=== PATIENT | female | born 1955 | race American Indian/Alaskan Native ===

== ENCOUNTER 2018-09-10 09:36 | Emergency (ER) | payer OTHER ==
[2018-09-10 10:21] VITALS: BP 180/72
--- NOTE | 2018-09-10 11:11 | Emergency Department Report ---
ED General Adult HPI - General Chief complaint: Pain General Stated complaint: LIGHT HEADED/FATIGUE/PALPATION Time Seen by Provider: 09/10/18 10:58 Source: patient Mode of arrival: Ambulatory Limitations: No Limitations - History of Present Illness Initial comments: Mrs. David is a 63 yo female with hx of "leaky valve" and palpitations who presents with generalized malaise and fatigue. She recently was treated with ciprofloxacin for 7 days for sinusitis. She now has diarrhea and fatigue. 4 stools per day. NO pain. She has had more palpitations than normal. consequently, she was worried. - Related Data Allergies Allergy/AdvReac Type Severity Reaction Status Date / Time sulfamethoxazole Allergy Vomiting Verified 09/10/18 09:52 [From Bactrim] trimethoprim [From Bactrim] Allergy Vomiting Verified 09/10/18 09:52 ED Review of Systems ROS: Stated complaint: LIGHT HEADED/FATIGUE/PALPATION Other details as noted in HPI Comment: All other systems reviewed and negative Constitutional: malaise. denies: fever Respiratory: denies: cough Cardiovascular: palpitations. denies: chest pain Gastrointestinal: diarrhea. denies: abdominal pain ED Past Medical Hx - Past Medical History Hx Hypertension: Yes Hx of Cancer: Yes (BREAST) Additional medical history: SINUS INFECTION GASTRITIS - Surgical History Additional Surgical History: BREAST SURGERY 96 SECTION X4/ HYSTO - Social History Smoking Status: Never Smoker Substance Use Type: None ED Physical Exam - General Limitations: No Limitations General appearance: alert, in no apparent distress - Head Head exam: Present: atraumatic, normocephalic - Eye Eye exam: Present: normal appearance - ENT ENT exam: Present: mucous membranes moist - Neck Neck exam: Present: normal inspection. Absent: tenderness, meningismus - Respiratory Respiratory exam: Present: normal lung sounds bilaterally. Absent: respiratory distress, wheezes, rales, rhonchi - Cardiovascular Cardiovascular Exam: Present: regular rate, normal rhythm, normal heart sounds. Absent: bradycardia, systolic murmur, diastolic murmur, rubs, gallop - GI/Abdominal GI/Abdominal exam: Present: soft, normal bowel sounds. Absent: distended, tenderness, guarding, rebound - Extremities Exam Extremities exam: Present: normal inspection - Back Exam Back exam: Present: normal inspection - Neurological Exam Neurological exam: Present: alert, oriented X3 - Psychiatric Psychiatric exam: Present: normal affect, normal mood - Skin Skin exam: Present: warm, dry, intact, normal color. Absent: rash ED Course Vital Signs 09/10/18 09/10/18 09:45 10:50 Temperature 98.4 F Pulse Rate 66 Respiratory 18 18 Rate Blood Pressure 180/72 O2 Sat by Pulse 98 Oximetry ED Medical Decision Making - Lab Data Result diagrams: 09/10/18 11:17 09/10/18 11:17 - EKG Data Interpretation: no acute changes 09/10/18 11:14 Time obtained 0947 Normal sinus rhythm 70 bpm nl axis no ST elevation nonspecific T wave patterns no ST elevation - Medical Decision Making Mrs. David presents with palpitations and fatigue. She is able to hydrate well at home. EKG did not show acute findings. No arrhythmia. CBC chemistry within normal limits except for mild hypokalemia 3.3 patient given potassium diet.. Due to patient's well appearance, I do not suspect C. difficile infection. Patient understands to use loperamide on the schedule basis. She understands return to ER symptoms progress. I suspect the patient did have PVCs due to change in volume status. Also she is self treating for possible dehydration with oral hydration at home. Critical care attestation.: If time is entered above; I have spent that time in minutes in the direct care of this critically ill patient, excluding procedure time. ED Disposition Clinical Impression: Diarrhea, Palpitations, Hypokalemia Disposition: - TO HOME OR SELFCARE Is pt being admited?: No Does the pt Need Aspirin: No Condition: Stable Instructions: Palpitations (ED), Acute Diarrhea (ED), Hypokalemia (ED) Referrals: PRIMARY CARE, [Primary Care Provider] - 3-5 Days
[2018-09-10 11:53] LABS: Basophils % (Auto) 0.4 % (0.0-1.8); Eosinophils # (Auto) 0.1 K/mm3 (0.0-0.4); Eosinophils % (Auto) 0.8 % (0.0-4.3); Hematocrit 37.5 % (30.3-42.9); Hemoglobin 12.6 gm/dl (10.1-14.3); Lymphocytes # (Auto) 2.2 K/mm3 (1.2-5.4); Lymphocytes % (Auto) 28.9 % (13.4-35.0); Mean Corpuscular HGB Conc 34 % (30-34); Mean Corpuscular Hemoglobin 29 pg (28-32); Mean Corpuscular Volume 85 fl (79-97); Monocytes # (Auto) 0.4 K/mm3 (0.0-0.8); Monocytes % (Auto) 4.9 % (0.0-7.3); Platelet Count 196 K/mm3 (140-440); Red Cell Distribution Width 14.2 % (13.2-15.2)
[2018-09-10 12:05] LABS: BUN/Creatinine Ratio 15; Blood Urea Nitrogen 9 mg/dL (7-17); Calcium 10.1 mg/dL (8.4-10.2); Hemolysis Index 7
== END 2018-09-10 13:21 | disposition home or self-care (01) ==
LOC: ED 09:36
DX: E87.6 Hypokalemia (principal); R00.2 Palpitations; R19.7 Diarrhea, unspecified; I10 Essential (primary) hypertension; Z88.1 Allergy status to other antibiotic agents; Z88.2 Allergy status to sulfonamides
CPT/HCPCS: 36415; 80048; 85025; 93005; 93010; 99283

== ENCOUNTER 2018-11-30 06:00 | Day surgery (SDC) | payer OTHER ==
[2018-11-30] MEDS ORDERED: NACL 0.9% 1000 ML 1,000 ML ONE (07:38)
[2018-11-30] MEDS ORDERED: NACL 0.9% 1000 ML 1,000 ML IV SCH (08:00)
[2018-11-30] MEDS ORDERED: VERSED ONE (08:20)
[2018-11-30] MEDS ORDERED: DIPRIVAN 10 MG/ML IV ONE (08:20)
--- NOTE | 2018-11-30 08:21 | Anesthesia Day of Surgery ---
Anesthesia Day of Surgery - Day of Surgery Patient Examined: Yes Patient H&P Reviewed: Yes Patient is NPO: Yes
[2018-11-30] MEDS ORDERED: WATER FOR IRRIG STERILE IR ONE (08:24)
--- NOTE | 2018-11-30 08:24 | Anesthesia Consultation ---
Anesthesia Consult and Med Hx Date of service: 11/30/18 - Airway Anesthetic Teeth Evaluation: Good ROM Head & Neck: Adequate Mental/Hyoid Distance: Adequate Mallampati Class: Class II Intubation Access Assessment: Good - Pre-Operative Health Status ASA Pre-Surgery Classification: ASA3 Proposed Anesthetic Plan: MAC - Cardiovascular System Hx Hypertension: Yes (irregular heart rate, palpitations) - Gastrointestinal Hx Gastroesophageal Reflux Disease: Yes - Endocrine Hx End Stage Renal Disease: No Hx Liver Disease: No Hx Thyroid Disease: No - Other Systems Hx Cancer: Yes (left breast )
--- NOTE | 2018-11-30 09:06 | Short Stay Summary ---
Short Stay Documentation - Allergies and Medications Current Medications: Allergies sulfamethoxazole [From Bactrim] Allergy (Verified 09/10/18 09:52) Vomiting trimethoprim [From Bactrim] Allergy (Verified 09/10/18 09:52) Vomiting Home Medications Medication Instructions Recorded Confirmed Last Taken Type Bystolic 5 mg PO DAILY 11/29/18 11/29/18 11/29/18 History K-Dur 10 meq PO DAILY 11/29/18 11/29/18 11/29/18 History Lisinopril/Hydrochlorothiazide 20 - 25 mg PO DAILY 11/29/18 11/29/18 11/29/18 History Pantoprazole 40 mg PO PRN PRN 11/29/18 11/29/18 Unknown History Active Medications Sodium Chloride (Nacl 0.9% 1000 Ml) 1,000 mls @ 50 mls/hr IV DIRECT MALIK Last Admin: 11/30/18 08:27 Dose: 100 mls Documented by: - Brief post op/procedure progress note Date of procedure: 11/30/18 Pre-op diagnosis: Colon cancer screening Post-op diagnosis: same (1. Internal hemorrhoids) Procedure: Colonoscopy Anesthesia: MAC Findings: as above Surgeon: KLARISSA TOLENTINO Estimated blood loss: none Pathology: none Condition: stable - Disposition Condition at discharge: Stable Disposition: DC-01 TO HOME OR SELFCARE Short Stay Discharge Plan Activity: no restrictions Weight Bearing Status: Full Weight Bearing Diet: regular, low salt Follow up with: PRIMARY CARE, [Primary Care Provider] - 7 Days
[2018-11-30 09:30] VITALS: BP 126/50
== END 2018-11-30 06:01 | disposition home or self-care (01) ==
LOC: GIO 06:00
PROVIDERS: ATTEND Internal Medicine Gastroenterology
DX: Z12.11 Encounter for screening for malignant neoplasm of colon (principal); K64.0 First degree hemorrhoids; I10 Essential (primary) hypertension; K21.9 Gastro-esophageal reflux disease without esophagitis; Z85.3 Personal history of malignant neoplasm of breast; Z98.891 History of uterine scar from previous surgery; Z90.710 Acquired absence of both cervix and uterus; Z79.899 Other long term (current) drug therapy; Z98.890 Other specified postprocedural states
CPT/HCPCS: 45378; J2250; J2704; J7030

== ENCOUNTER 2020-12-31 09:06 | Outpatient (CLI) | payer OTHER ==
--- NOTE | 2020-12-31 15:09 | Mammography Report ---
STEREOTACTIC GUIDED LEFT BREAST BIOPSY, 12/31/2020 CLINICAL INFORMATION / INDICATION: The patient presents for stereotactic guided biopsy of left breast calcifications. She has a personal history of left breast cancer treated with lumpectomy approximate ly 20 years ago. COMPARISON: Screening mammogram, 10/07/2020. Diagnostic mammogram, 11/10/2020 PROCEDURE: Risks, benefits, and indications to the procedure were discussed with the patient in detail, includin g bleeding, infection, hematoma formation, and inadequate tissue sampling. The patient agreed to proc eed with both verbal and written consent. A timeout procedure was performed with 2 patient identifier s. The patient was placed in the prone position on the biopsy table. Targeted stereotactic images were o btained of the area of interest. The targeted area was identified and coordinates were determined. Th e breast was cleansed and prepped in the usual sterile fashion. Lidocaine 1% with and without epineph rine was used for local anesthesia. Under direct stereotatic guidance, an 8 gauge Mammotome biopsy de vice was advanced to the correct location calculated by the stereotactic unit. However, the biopsy de vice did not allow needle placement due to an inadequate stroke margin and inadequate breast tissue t hickness. The needle was removed and the puncture site was covered with a sterile dressing. The patient tolerated the procedure without difficulty. The placement of the biopsy needle in the lef t breast did produce a moderate sized left breast hematoma. Postbiopsy instructions were discussed with the patient and given in writing. IMPRESSION: 1. Technically unsuccessful left stereotactic guided biopsy due to inadequate breast tissue thickness and inadequate stroke margin. Considerations for biopsy would include left breast ultrasound to see if the calcifications can be visualized sonographically versus needle localization and surgical biops y. 2. Moderate sized left breast hematoma after needle placement. Findings were discussed with Dr. Hodges after the procedure. Signer Name: Reena Teran MD Signed: 12/31/2020 3:04 PM Workstation Name: [id number]
== END 2020-12-31 09:07 | disposition home or self-care (01) ==
LOC: SPVWC 09:06
PROVIDERS: ATTEND Surgery
DX: R92.1 Mammographic calcification found on diagnostic imaging of breast (principal); R92.8 Other abnormal and inconclusive findings on diagnostic imaging of breast

== ENCOUNTER 2021-04-09 09:46 | Outpatient (CLI) | payer OTHER ==
--- NOTE | 2021-04-09 12:02 | Ultrasound Report ---
LEFT DIGITAL DIAGNOSTIC MAMMOGRAM WITH CAD WITH TOMOSYNTHESIS, 04/09/2021 LEFT LIMITED BREAST ULTRASOUND CLINICAL INFORMATION / INDICATION: The patient has a history of abnormal left mammogram with a cluste r of calcifications in the left breast. She has a personal history of left breast cancer diagnosed ap proximately 20 years ago. She recently underwent stereotactic guided biopsy of calcifications which w as unsuccessful due to inadequate breast tissue thickness and inadequate stroke margin. This is a amanda rt-term follow-up evaluation to assess calcifications. TECHNIQUE: Digital left mammographic imaging was performed. Limited ultrasound was performed. This ex amination was interpreted with the benefit of Computer-Aided Detection (CAD) analysis. COMPARISON: Stereotactic guided biopsy, 12/31/2020. Diagnostic mammogram and ultrasound, 11/10/2020. S creening mammogram, 10/07/2020. FINDINGS: Breast Density: The breasts are heterogeneously dense, which may obscure small masses. MAMMOGRAPHIC FINDINGS: Branching slightly pleomorphic calcifications at the 9:00 position middle dept h are again noted in span an area of approximately 1 cm. Postlumpectomy changes are noted in the uppe r outer quadrant. There is new mild skin thickening of the left breast. ULTRASOUND FINDINGS: Targeted ultrasound evaluation was performed of the area of interest. Ultrasound evaluation was performed in attempts to identify the calcifications sonographically to facilitate bi opsy. However, no definitive sonographic correlate is seen. IMPRESSION: 1. Left breast calcifications at the 9:00 position as described above but remains suspicious for DCIS . Therefore, needle localization and surgical biopsy are recommended. Follow up recommendation: Biopsy BI-RADS Category 4: Suspicious for Malignancy. A "normal" or negative report should not discourage follow up or biopsy of a clinically significant f inding. A written summary of these findings will be mailed to the patient. The patient will be entered into a mammography reporting system which will generate a reminder letter for the patient's next appointmen t at the appropriate interval. According to the [employer], yearly mammograms are recommended starting at age 40 and continuing as long as a woman is in good health. Breast MRI is recommended for women with an bull roximately 20-25% or greater lifetime risk of breast cancer, including women with a strong family his tory of breast or ovarian cancer and women who have been treated for Hodgkin's disease. Signer Name: Reena Teran MD Signed: 04/09/2021 11:58 AM Workstation Name: [id number]
== END 2021-04-09 09:47 | disposition home or self-care (01) ==
LOC: SPVWC 09:46
PROVIDERS: ATTEND Surgery
DX: R92.1 Mammographic calcification found on diagnostic imaging of breast (principal)